=== PATIENT | female | born 1975 | race Caucasian/White ===

== ENCOUNTER 2018-04-16 16:32 | Emergency (ER) | payer MEDICAID ==
[~2018-04-16] VITALS: Ht 157.5 cm; Wt 68.0 kg
[2018-04-16] MEDS ORDERED: Ocuflox5 ML LEFTEYE (19:59)
[2018-04-16] MEDS ORDERED: ERYT1OIN LEFTEYE (19:59)
== END 2018-04-16 20:16 | disposition home or self-care (01) ==
LOC: ER 16:32
DX: S05.02XA Injury of conjunctiva and corneal abrasion without foreign body, left eye, initial encounter (principal); X58.XXXA Exposure to other specified factors, initial encounter; Z88.8 Allergy status to other drugs, medicaments and biological substances
CPT/HCPCS: 99284